=== PATIENT | male | born 1940 | race Caucasian/White ===

== ENCOUNTER 2019-02-18 12:02 | Inpatient (IN) | payer OTHER, MEDICAID ==
[~2019-02-18] VITALS: Ht 177.8 cm; Wt 64.3 kg
[2019-02-18] MEDS ORDERED: SODIUM CHLORIDE 0.9% 500 ML IVB ONE (12:08)
[2019-02-18 13:05] LABS: Basophils # (auto) 0 uL; Eosinophils # (auto) 0 uL; Lymphocytes # (auto) 0.4 uL; Monocytes # (auto) 0.5 uL; Neutrophils # (auto) 4.2 uL
[2019-02-18 13:06] LABS: Basophils % (auto) 0.9 % (0.0-2.0); Eosinophils % (auto) 0.4 % (0.0-7.0); Hematocrit 25.8 % (41.0-53.0); Hemoglobin 8.3 g/dL (13.5-17.5); Lymphocytes % (auto) 7.6 % (10.0-50.0); Mean Corpuscular Hemoglobin 26.8 pg (28.0-32.0); Mean Corpuscular Hgb Conc. 32.4 g/dL (32.0-36.0); Mean Corpuscular Volume 82.6 fL (80.0-100.0); Monocytes % (auto) 9.1 % (0.0-12.0); Platelet Count (auto) 134 10^3/uL (140-450); Red Blood Cells 3.12 10^6/uL (4.5-5.90); Red Cell Distribution Width 16.1 % (11.8-14.3); White Blood Cell 5.1 10^3/uL (4.4-10.8)
[2019-02-18 13:18] LABS: INR 1.09 (0.9-1.15); Partial Thromboplastin Time 28.1 sec (23.64-32.05)
[2019-02-18 13:38] LABS: Albumin 2.6 g/dL (3.4-5.0); BUN/Creatinine Ratio 10.8; Calcium 8.2 mg/dL (8.5-10.1); Magnesium 2.1 mg/dL (1.6-2.6); Potassium 3.8 mmol/L (3.5-5.1)
[2019-02-18 13:43] LABS: Bilirubin, Total 0.7 mg/dL (0.2-1.0); Total Protein 9.4 g/dL (6.4-8.2)
[2019-02-18] MEDS ORDERED: DOCUSATE SOD 100 MG CAP PO PRN (16:30)
[2019-02-18] MEDS ORDERED: NITROGLYCERIN 0.4 MG SL TAB SL PRN (16:30)
[2019-02-18] MEDS ORDERED: ONDANSETRON HCL 4 MG/2 ML VIAL IV PRN (16:30)
[2019-02-18] MEDS ORDERED: HYDROcodone-ACET 5/325MG TAB PO PRN (16:30)
[2019-02-18] MEDS ORDERED: MORPHINE SULF INJ 2 MG/ML SYRINGE 1ML IV PRN ×2 (16:30)
[2019-02-18] MEDS ORDERED: ACETAMINOPHEN 500 MG TAB PO PRN (16:30)
[2019-02-18 17:14] LABS: Lactic Acid w/Reflex 2.2 mmol/L (0.4-2.0)
[2019-02-19] VITALS (7 sets, daily range): BP systolic 113–155; BP diastolic 56–77
--- NOTE | 2019-02-19 01:40 | NUR ---
OPENING NOTE RECEIVED PATIENT FROM ER. NO REPORT RECEIVED. PATIENT SHOWING NO SIGN OF DISTRESS, SHORTNESS OF BREATH, AND PATIENT DENIES ANY PAIN AT THIS TIME. PATIENT SUCCESSFULLY AMBULATED TO BED FROM CHAIR WITH MINIMAL ASSIST. PATIENT EDUCATED ON PLAN OF CARE FOR THE NIGHT AND PATIENT VERBALIZED UNDERSTANDING. BED LOWERED, CALL LIGHT WITHIN REACH, AND PATIENT WILL BE ROUNDED ON EVERY HOUR AND NEEDED.
--- NOTE | 2019-02-19 07:38 | NUR ---
Opening Shift Note Assumed care of patient, awake, alert and oriented. No S/S of distress/SOB or pain. Bed at lowest locked position, side rails up x2 and call light within reach. Instructed on POC and to call for assist PRN, will continue to monitor for changes Q1hr and PRN.
--- NOTE | 2019-02-19 08:34 | NUR ---
Patents sister Katerina, is requesting long term facility for patient to regain strength. Sister states that her concern is he is too weak and she is unable to care for him on her own. She states he has had multiple falls at home due to his weakness.
[2019-02-19 08:58] LABS: Basophils # (auto) 0 uL; Eosinophils # (auto) 0 uL; Eosinophils % (auto) 0.4 % (0.0-7.0); Lymphocytes # (auto) 0.5 uL; Mean Corpuscular Volume 82.9 fL (80.0-100.0); Monocytes # (auto) 0.5 uL; Monocytes % (auto) 8.6 % (0.0-12.0); Neutrophils # (auto) 4.6 uL; White Blood Cell 5.6 10^3/uL (4.4-10.8)
[2019-02-19 09:04] LABS: Basophils % (auto) 0.6 % (0.0-2.0); Hematocrit 28.3 % (41.0-53.0); Hemoglobin 9.5 g/dL (13.5-17.5); Lymphocytes % (auto) 8.9 % (10.0-50.0); Mean Corpuscular Hemoglobin 27.9 pg (28.0-32.0); Mean Corpuscular Hgb Conc. 33.6 g/dL (32.0-36.0); Neutrophils % (auto) 81.5 % (37.0-80.0); Nucleated Red Blood Cells % 0.1 %; Platelet Count (auto) 149 10^3/uL (140-450); Red Blood Cells 3.41 10^6/uL (4.5-5.90); Red Cell Distribution Width 16.1 % (11.8-14.3)
[2019-02-19 09:29] LABS: Albumin 2.7 g/dL (3.4-5.0); BUN/Creatinine Ratio 9.9; Calcium 8.7 mg/dL (8.5-10.1); Potassium 3.8 mmol/L (3.5-5.1)
[2019-02-19 09:31] LABS: Bilirubin, Total 1.3 mg/dL (0.2-1.0); Total Protein 9.5 g/dL (6.4-8.2)
[2019-02-19] MEDS: FAMOTIDINE 20 MG TAB PO SCH (09:33)
[2019-02-19] MEDS: ASPirin 81 mg TAB PO SCH (09:33)
--- NOTE | 2019-02-19 18:56 | NUR ---
PATIENT IS COMFORTABLY SITTING UP IN BED. BED AT LOWEST LOCKED POSITION AND CALL LIGHT WITHIN REACH. BED ALARM ON. WILL ENDORSE CARE TO NOC RN.
[2019-02-19] MEDS ORDERED: LEVOFLOXACIN 500MG 100 ML IV ONE (21:00)
--- NOTE | 2019-02-20 01:16 | NUR ---
1999-RECEIVED PT RESTING IN BED, NO COMPLAINTS VOICED, NO ACUTE DISTRESS NOTED, VSS, PT TELE MONITORED RHYTHM NOTED. Addendum: 02/20/19 at 0123 by Reg 2 RN 1999-10 P'S ADDRESSED, PT EDUCATED ON NEED TO REPOSITION AT LEAST EVERY 2 HOURS, VERBALIZED UNDERSTANDING.
--- NOTE | 2019-02-20 01:25 | NUR ---
2130-DR SCOTT AT BEDSIDE SPEAKING WITH PT. DISCUSSED PLAN OF CARE WITH PT, MILD CONFUSION NOTED, REINFORCED EDUCATION.
--- NOTE | 2019-02-20 02:06 | NUR ---
0206-PT ABLE TO REPOSITION SELF ENCOURAGED EVERY TO HOURS TO CHANGE POSITION. Addendum: 02/20/19 at 0207 by Reg 2 RN Amended: Links added.
--- NOTE | 2019-02-20 04:13 | NUR ---
PT ENCOURAGED TO REPOSITION. Addendum: 02/20/19 at 0413 by Reg 2 RN Amended: Links added.
[2019-02-20 05:00] VITALS: BP 152/67
[2019-02-20 06:50] LABS: Hemoglobin 8.8 g/dL (13.5-17.5); Lymphocytes # (auto) 0.7 uL; Monocytes # (auto) 0.6 uL; White Blood Cell 5.4 10^3/uL (4.4-10.8)
[2019-02-20 06:54] LABS: Basophils # (auto) 0.2 uL; Basophils % (auto) 3.2 % (0.0-2.0); Eosinophils # (auto) 0 uL; Eosinophils % (auto) 0.8 % (0.0-7.0); Hematocrit 27.3 % (41.0-53.0); Lymphocytes % (auto) 12.6 % (10.0-50.0); Mean Corpuscular Hemoglobin 26.7 pg (28.0-32.0); Mean Corpuscular Hgb Conc. 32.2 g/dL (32.0-36.0); Monocytes % (auto) 10.5 % (0.0-12.0); Neutrophils # (auto) 3.9 uL; Neutrophils % (auto) 72.9 % (37.0-80.0); Platelet Count (auto) 129 10^3/uL (140-450); Red Blood Cells 3.29 10^6/uL (4.5-5.90); Red Cell Distribution Width 16.1 % (11.8-14.3)
[2019-02-20 07:11] LABS: Potassium 3.9 mmol/L (3.5-5.1)
[2019-02-20 07:18] LABS: BUN/Creatinine Ratio 13.9; Calcium 8.3 mg/dL (8.5-10.1)
--- NOTE | 2019-02-20 07:20 | NUR ---
PT RESTING IN BED, NO COMPLAINTS VOICED, NO ACUTE DISTRESS NOTED. REPORT GIVEN TO NINO BRAMBILA Addendum: 02/20/19 at 0721 by Reg 2 NINO Amended: Links added.
--- NOTE | 2019-02-20 07:30 | NUR ---
OPENING NOTE The patient is received alert and oriented times four with no SOB or s/s of distress at this time. The patient is resting in bed in the lowest position with call light within reach, will continue to monitor and POC.
[2019-02-20 09:00] VITALS: BP 140/66
--- NOTE | 2019-02-20 10:00 | NUR ---
PENDING TRANSFER Case management is called and the patient's pending transfer to [place] is being worked on at this time, will continue POC.
--- NOTE | 2019-02-20 10:19 | NUR ---
SS consult regarding transfer to [facility], pt's contracted facility, if bed available otherwise pt can transfer to SNF. Contacted Josee, housekeeper cleaning cooking at [facility], regarding bed availability. Per Josee, facility has 25 pt's holding in the ER and have no bed availability. Notified covering nurse and social worker delinquency prevention of no beds for transfer and pt will be going for SNF placement.
[2019-02-20] MEDS ORDERED: LEVOFLOXACIN 500 MG TAB PO ONE (12:00)
--- NOTE | 2019-02-20 12:30 | NUR ---
TRANSFER UPDATE The hospitalist is called and updates the patient's transfer status. The patient's transfer to [facility] has been cancelled and the patient will be transferred to [facility]. The patient has a pending Neuro and Cardio consultation to be completed before being transferred to [facility].
[2019-02-20] MEDS: FAMOTIDINE 20 MG TAB PO SCH (12:57)
[2019-02-20] MEDS: ASPirin 81 mg TAB PO SCH (12:57)
[2019-02-20] MEDS: ENOXAPARIN SOD 40 MG/0.4 ML SYRINGE SC SCH (12:58)
[2019-02-20 13:00] VITALS: BP 126/62
--- NOTE | 2019-02-20 13:46 | NUR ---
D/C planning Per consult for SNF placement. Contacted and faxed medical records to all three facilities [facility], [facility] and [place]. Per Og from [facility] Pt has been accepted to room 302 bed [address] Ayala. Informed [facility] for transportation authorization. [facility] faxed medical records to [facility] Ph: ) Fax: ). Contacted [facility] and spoke to Jodie. Per Jodie from [facility] authorization for [facility]: [id number]. Contacted [facility] ph: ) advised Macy to put transport on will call. Informed NINO Finch transportation will be set up on will call. Addendum: 02/20/19 at 1357 by ADRIENNE LIMON Amended: Links added.
--- NOTE | 2019-02-20 13:50 | NUR ---
CHEMICAL WEIGHER CALLS Dr. Smith calls and is updated on the patient's status. Dr. Smith states he will be bedside for the patient's Cardio Consult later today.
--- NOTE | 2019-02-20 14:04 | NUR ---
NEUROLOGIST CALLED Dr. Parks is paged for the patient's Neurology consultation and MRI results, awaiting call back at this time.
--- NOTE | 2019-02-20 14:10 | NUR ---
PHYSICIAN CALLED Dr. Cora Sneed is called and a message is left regarding the patient's MRI result.
--- NOTE | 2019-02-20 14:30 | NUR ---
NEUROLOGIST CALLS Dr. Parks calls and is updated on the patient's status. Dr. Parks states that he needs to be notified stat if the patient converts to A-Fib. Dr. Parks is made aware of the patient's resulting MRI and acknowledges the information at this time. Will continue to monitor and POC.
--- NOTE | 2019-02-20 15:10 | NUR ---
PHYSICIAN AWARE Dr. Cora Sneed calls and is made aware of the patient's positive blood cultures. The patient's blood culture is positive for gram positive cocci in clusters. Dr. Cora Sneed places orders via telephone with read back, will continue to monitor and POC.
[2019-02-20 15:12] LABS: Urine Bacteria FEW /hpf (None Seen); Urine Blood 2+ /uL (Negative); Urine Hyaline Cast FEW /lpf (0 - 2); Urine Mucus FEW (None Seen); Urine Specific Gravity 1.012 (1.001-1.035); Urine WBC 9 /hpf (0 - 3)
[2019-02-20] MEDS ORDERED: VANCOMYCIN PER PHARMACY 0 MG IV SCH (15:30)
[2019-02-20] MEDS ORDERED: VANCOMYCIN 1GM/250ML 250 ML IV ONE (15:30)
[2019-02-20 17:00] VITALS: BP 120/64
--- NOTE | 2019-02-20 19:20 | NUR ---
Opening Shift Note Assumed care of patient, awake and alert. No S/S of distress/SOB or pain. Instructed on POC and to call for assist PRN, will continue to monitor for changes Q1hr and PRN.
[2019-02-20 21:00] VITALS: BP 106/50
--- NOTE | 2019-02-20 23:40 | NUR ---
PHYSICIAN CALL Received call from Dr. Cora Sneed. Orders received for AHMET on 02/21/19 and NPO at midnight starting on at 0000.
[2019-02-21 04:30] VITALS: BP 134/69
[2019-02-21 07:18] LABS: Basophils # (auto) 0.1 uL; Eosinophils # (auto) 0.1 uL; Hemoglobin 9.1 g/dL (13.5-17.5); Lymphocytes # (auto) 0.5 uL; Monocytes # (auto) 0.5 uL; Neutrophils # (auto) 3.7 uL; White Blood Cell 4.9 10^3/uL (4.4-10.8)
[2019-02-21 07:20] LABS: Basophils % (auto) 2.1 % (0.0-2.0); Eosinophils % (auto) 2.3 % (0.0-7.0); Hematocrit 27.7 % (41.0-53.0); Lymphocytes % (auto) 10.3 % (10.0-50.0); Mean Corpuscular Hemoglobin 26.9 pg (28.0-32.0); Mean Corpuscular Hgb Conc. 32.6 g/dL (32.0-36.0); Mean Corpuscular Volume 82.5 fL (80.0-100.0); Monocytes % (auto) 9.8 % (0.0-12.0); Neutrophils % (auto) 75.5 % (37.0-80.0); Platelet Count (auto) 133 10^3/uL (140-450); Red Blood Cells 3.36 10^6/uL (4.5-5.90); Red Cell Distribution Width 16.2 % (11.8-14.3)
[2019-02-21 07:35] LABS: Calcium 8.5 mg/dL (8.5-10.1); Potassium 3.8 mmol/L (3.5-5.1)
[2019-02-21 07:39] LABS: BUN/Creatinine Ratio 17.5
[2019-02-21 08:00] VITALS: BP 130/66
--- NOTE | 2019-02-21 09:18 | NUR ---
PT TRANSPORTED TO [employer] LE[facility] FOR AHMET, PRE-OP CHECKLIST COMPLETED, CONSENTS SIGNED, IV ON LEFT FOREARM PATENT AND FLUSHING, NO SIGNS OF DISTRESS AT THIS TIME.
[2019-02-21] MEDS ORDERED: fentaNYL CITRATE 100 MCG/2 ML VL IV ONE (09:30)
[2019-02-21] MEDS ORDERED: MIDAZOLAM HCL 1MG/1ML-2 ML VIAL IV ONE (09:30)
[2019-02-21] MEDS ORDERED: LIDOCAINE VISCOUS 2% 15ML UD PO ONE (09:30)
[2019-02-21] MEDS ORDERED: LEVOFLOXACIN 500 MG TAB PO SCH (10:00)
[2019-02-21] MEDS: ASPirin 81 mg TAB PO SCH (10:00)
[2019-02-21] MEDS: ENOXAPARIN SOD 40 MG/0.4 ML SYRINGE SC SCH (10:00)
--- NOTE | 2019-02-21 10:00 | NUR ---
MEDICATION PT OFF FLOOR FOR AHMET, WILL GIVE SCHEDULED MEDICATION ONCE PT IS BACK.
--- NOTE | 2019-02-21 10:55 | NUR ---
SPOKE WITH DR. Hillary HERMAN PER DR. Cora HERMAN HE SPOKE WITH DR. HAIR AND AHMET WAS NEGATIVE, ORDERED TO CALL DR. GARZON AND DR. LI FOR DISCHARGE CLEARANCE ONCE OFFICIAL AHMET RESULT IS BACK. PT TO TRANSFER TO SNF.
[2019-02-21] MEDS ORDERED: ATORVASTATIN 20 MG TAB PO ONE (11:00)
--- NOTE | 2019-02-21 11:21 | NUR ---
CALLED SUE IN [facility], LEFT A MESSAGE FOR DR. HAIR THAT PT NEED THE OFFICIAL AHMET REPORT, PT PENDING DISCHARGE TO SNF. PER SUE SHE WILL INFORM DR. HAIR.
--- NOTE | 2019-02-21 11:22 | NUR ---
Nutrition Assessment Notes please see attached link for complete assessment Est. Needs BW (64 kg): 8393-2442 kcal (25-30 kcal/kgBW), 64-76 gms pro (1.0-1.2 gms/kgBW). Will continue to monitor pertinent labs and reassess nutrient need prn Addendum: 02/21/19 at [address] Amended: Links added.
--- NOTE | 2019-02-21 11:35 | NUR ---
RECEIVED REPORT FROM NINO TEIXEIRA OF [facility]
--- NOTE | 2019-02-21 12:12 | NUR ---
RECEIVED PT FROM [facility] VIA BED, PT IS AWAKE AND ALERT, NO SIGNS OF DISTRESS AT THIS TIME, LLUVIA OF [facility] SAID PT SPIT BLOOD IN RECOVERY ROOM, I WILL HOLD BLOOD THINNER AND MONITOR THE PT FOR BLEEDING.
[2019-02-21] MEDS: FAMOTIDINE 20 MG TAB PO SCH (12:14)
--- NOTE | 2019-02-21 12:24 | NUR ---
PAGED DR. LI FOR DISCHARGE CLEARANCE, WAITING FOR CALL BACK.
--- NOTE | 2019-02-21 12:26 | NUR ---
PAGED DR. GARZON FOR DISCHARGE CLEARANCE, WAITING FOR CALL BACK.
--- NOTE | 2019-02-21 12:35 | NUR ---
D/C Planning Followed up a call with [facility] transportation advised Zoila to keep status on will call for the weekend. Per Zoila from [facility] transportation will be set up on will call Ph:.
--- NOTE | 2019-02-21 12:42 | NUR ---
DR. LI CALLED HE WAS UPSET WHY HE WAS CONSULTED FOR CARDIOLOGY AND DR. HAIR DID THE AHMET, HE SAID HE WILL CLEAR THE PT BUT DR. HAIR HAS TO CLEAR THE PT WELL BASE ON AHMET RESULT.
--- NOTE | 2019-02-21 12:55 | NUR ---
DR. GARZON CALLED, HE CLEARED PT FOR DISCHARGE TO SNF.
--- NOTE | 2019-02-21 13:15 | NUR ---
sister Katerina made aware pt will be transferred to [facility] today room 302 bed 2.
--- NOTE | 2019-02-21 13:21 | NUR ---
SPOKE WITH MAINTENANCE DEPARTMENT MANAGER SONIYA PUCKETT PER SONIYA, DR. HAIR ALREADY SPOKE WITH DR. HERMAN AHMET WAS NEGATIVE, PT IS CLEARED FOR DISCHARGE.
--- NOTE | 2019-02-21 14:00 | NUR ---
SPOKE WITH HOSSEIN ALMAGUER, PER HOSSEIN PT IS OKAY TO GO, [facility] IS ON WILL CALL.
--- NOTE | 2019-02-21 14:37 | NUR ---
called [facility] for transportation, ETA at 4:0pm
--- NOTE | 2019-02-21 14:50 | NUR ---
report called to [facility] acute
--- NOTE | 2019-02-21 15:43 | NUR ---
BP 173/82, RE CHECKED 164/82, PT HAS NO BP MEDICATION, PAGED DR. Cora HERMAN, WAITING FOR CALL BACK.
--- NOTE | 2019-02-21 16:10 | NUR ---
DR. HERMAN CALLED MADE AWARE OF PT'S BLOOD PRESSURE 164/82, NO BLOOD PRESSURE MEDICATION AND ATORVASTATIN WAS NOT INCLUDED IN PT'S MEDICATION. DR. HERMAN ORDERED AMLODIPINE 10MG ONE TIME DOSE AND ADDED IN PT'S MEDICATION AMLODIPINE 10MG PO DAILY AND ATORVASTATIN 40MG PO DAILY.
[2019-02-21] MEDS ORDERED: amLODIPine BESYLATE 5 MG TAB PO ONE (16:15)
--- NOTE | 2019-02-21 16:15 | NUR ---
CORE MEASURE PT INSTRUCTED TO TAKE ASPIRIN AND ATORVASTATIN TO PREVENT STROKE, PT VERBALIZED UNDERSTANDING.
--- NOTE | 2019-02-21 16:25 | NUR ---
CALLED NINO LUKE OF [facility], UPDATED ON PT'S MEDICATION, MADE AWARE PT WAS GIVEN AMLODIPINE 10MG PO FOR BP 164/82 AND ATORVASTATIN 40 MG DAILY WAS ADDED TO PT'S MEDICATION.
--- NOTE | 2019-02-21 16:30 | NUR ---
Discharge TO [facility], instructions given as ordered. Encourage to follow up with PRIMARY CARE PROVIDER IN 1 WEEK as instructed. All questions and concerns addressed. Patient verbalized understanding. Medication reconciliation form completed and copy given to patient. IV removed with catheter intact, pressure dressing applied, yancey catheter removed. Telemetry unit returned to ICU. Patient taken to vehicle via GURNEY with all personal belongings, accompanied by [facility] staff. No distress noted at time of departure.
--- NOTE | 2019-02-21 16:41 | NUR ---
assessment Patient is a 79 year old male who is alert and oriented. prior to admission patient lived home with family and functioned with assistance. Per patient his PCP is Dr Velez. Patient has a cane and fww for home use. Patient has been admitted for CVA. Patient wants SNF for rehab. Patient has a consult for rehab. Patient agrees. Patient will go to [facility] on cleared for discharge. Patient verbalized understanding and agreed to discharge plan to SNF. Addendum: 02/21/19 at 1648 by Renae MORRIS Amended: Links added.
[2019-02-21] MEDS ORDERED: VANCOMYCIN 1GM/250ML 250 ML IV SCH (17:00)
[2019-02-21] MEDS ORDERED: ATORVASTATIN 20 MG TAB PO SCH (22:00)
== END 2019-02-21 16:30 | DRG 65 ==
LOC: ER 12:02 → EDBD 12:02 → TELE 12:03 → TELE-CENTR 23:55
PROVIDERS: ADMIT Nurse Practitioner Acute Care; ATTEND Internal Medicine
PROC: B24BZZ4 Ultrasonography of Heart with Aorta, Transesophageal (ICD-10-PCS; principal; 2019-02-21)
DX: I63.40 Cerebral infarction due to embolism of unspecified cerebral artery (principal); E44.0 Moderate protein-calorie malnutrition; G81.94 Hemiplegia, unspecified affecting left nondominant side; J44.9 Chronic obstructive pulmonary disease, unspecified; I10 Essential (primary) hypertension; K74.60 Unspecified cirrhosis of liver; Z96.642 Presence of left artificial hip joint; I34.0 Nonrheumatic mitral (valve) insufficiency; I67.2 Cerebral atherosclerosis; I70.0 Atherosclerosis of aorta; M19.90 Unspecified osteoarthritis, unspecified site; D64.9 Anemia, unspecified; D69.6 Thrombocytopenia, unspecified; W18.39XA Other fall on same level, initial encounter; S50.319A Abrasion of unspecified elbow, initial encounter; Z79.891 Long term (current) use of opiate analgesic; Y93.89 Activity, other specified; Y92.89 Other specified places as the place of occurrence of the external cause; Y99.8 Other external cause status; Z79.899 Other long term (current) drug therapy; Z68.20 Body mass index [BMI] 20.0-20.9, adult; Z87.440 Personal history of urinary (tract) infections
CPT/HCPCS: 36415; 70450; 70551; 71045; 80048; 80053; 81001; 82140; 83605; 83735; 84443; 84484; 85025; 85610; 85730; 86850; 86900; 86901; 87040; 87077; 87081; 87086; 87186; 93005; 93312; 93886; 96360; 97116; 97163; 97530; 99291; G0378; J1956; J2250

== ENCOUNTER 2019-06-05 21:12 | Inpatient (IN) | payer OTHER, MEDICAID ==
[~2019-06-05] VITALS: Ht 160 cm; Wt 62.5 kg
[2019-06-05 22:19] LABS: Basophils # (auto) 0.1 uL; Basophils % (auto) 0.5 % (0.0-2.0); Eosinophils # (auto) 0 uL; Eosinophils % (auto) 0.2 % (0.0-7.0); Hematocrit 26.5 % (41.0-53.0); Hemoglobin 8.7 g/dL (13.5-17.5); Lymphocytes # (auto) 0.5 uL; Lymphocytes % (auto) 3.7 % (10.0-50.0); Mean Corpuscular Hemoglobin 28.6 pg (28.0-32.0); Mean Corpuscular Hgb Conc. 32.7 g/dL (32.0-36.0); Mean Corpuscular Volume 87.6 fL (80.0-100.0); Monocytes # (auto) 0.7 uL; Neutrophils % (auto) 90.6 % (37.0-80.0); Platelet Count (auto) 140 10^3/uL (140-450); Red Blood Cells 3.03 10^6/uL (4.5-5.90); Red Cell Distribution Width 19.7 % (11.8-14.3); White Blood Cell 13.2 10^3/uL (4.4-10.8)
[2019-06-05 22:34] LABS: INR 1.29 (0.9-1.15); Partial Thromboplastin Time 30.1 sec (23.64-32.05)
[2019-06-05 22:40] LABS: Calcium 7.8 mg/dL (8.5-10.1); Potassium 4.2 mmol/L (3.5-5.1)
[2019-06-05 22:42] LABS: Albumin 2.2 g/dL (3.4-5.0); BUN/Creatinine Ratio 19.4
[2019-06-05 22:46] LABS: Lactic Acid w/Reflex 2.4 mmol/L (0.4-2.0)
[2019-06-05 22:56] LABS: Bilirubin, Total 0.9 mg/dL (0.2-1.0); Total Protein 9.1 g/dL (6.4-8.2)
[2019-06-06] MEDS ORDERED: DILTIAZEM HCL 25 MG/5 ML VIAL IV ONE ×2 (00:15→08:00)
[2019-06-06 01:37] LABS: Magnesium 2.1 mg/dL (1.6-2.6)
[2019-06-06 01:42] LABS: Urine Bacteria MOD /hpf (None Seen); Urine Blood 2+ /uL (Negative); Urine Hyaline Cast FEW /lpf (0 - 2); Urine Specific Gravity 1.017 (1.001-1.035); Urine WBC 8 /hpf (0 - 3)
[2019-06-06] MEDS ORDERED: MORPHINE SULF INJ 2 MG/ML SYRINGE 1ML IV PRN (05:30)
[2019-06-06] MEDS ORDERED: ONDANSETRON HCL 4 MG/2 ML VIAL IV PRN (05:30)
[2019-06-06] MEDS ORDERED: TEMAZEPAM 15 MG CAP PO PRN (05:30)
[2019-06-06] MEDS ORDERED: NITROGLYCERIN 0.4 MG SL TAB SL PRN (05:30)
[2019-06-06] MEDS ORDERED: SODIUM CHLORIDE 0.9% 500 ML IV ONE (05:30)
[2019-06-06] MEDS ORDERED: LEVOFLOXACIN 500MG 100 ML IV ONE (06:00)
[2019-06-06] MEDS ORDERED: ENOXAPARIN SOD 100 MG/1 ML SYRINGE SC ONE (06:00)
[2019-06-06] MEDS ORDERED: DIGOXIN (250MCG/ML) 2 ML AMPULE IV ONE (08:00)
[2019-06-06] MEDS ORDERED: AMIODARONE HCL 150 MG in D5W 5% 100 ML IV ONE (09:00)
[2019-06-06] MEDS ORDERED: AMIODARONE HCL 900 MG in DEXTROSE 500 ML IV SCH ×2 (09:04→16:15)
[2019-06-06] MEDS ORDERED: amLODIPine BESYLATE 5 MG TAB PO SCH (10:00)
[2019-06-06] MEDS ORDERED: ASPirin 81 mg TAB PO SCH (10:00)
[2019-06-06] MEDS: PANTOPRAZOLE 40 MG TAB PO SCH (10:24)
[2019-06-06] MEDS: ENOXAPARIN SOD 60 MG/0.6 ML SYRINGE SC SCH ×2 (10:25→22:12)
[2019-06-06] MEDS: FUROSEMIDE 40 MG/4 ML VIAL IV ONE ×2 (16:15→16:38)
[2019-06-06] MEDS: ACETAMINOPHEN 325 MG TAB PO PRN (18:23)
[2019-06-06] MEDS: ATORVASTATIN 20 MG TAB PO SCH (22:13)
[2019-06-06] MEDS: CARVEDILOL 3.125 MG TAB PO SCH (22:13)
[2019-06-06 22:33] LABS: Basophils # (auto) 0 uL; Basophils % (auto) 0.3 % (0.0-2.0); Eosinophils # (auto) 0 uL; Eosinophils % (auto) 0.5 % (0.0-7.0); Hematocrit 24.3 % (41.0-53.0); Hemoglobin 7.7 g/dL (13.5-17.5); Lymphocytes # (auto) 0.7 uL; Lymphocytes % (auto) 7.7 % (10.0-50.0); Mean Corpuscular Hemoglobin 28.2 pg (28.0-32.0); Mean Corpuscular Hgb Conc. 31.7 g/dL (32.0-36.0); Mean Corpuscular Volume 88.9 fL (80.0-100.0); Monocytes # (auto) 0.7 uL; Monocytes % (auto) 7.5 % (0.0-12.0); Neutrophils # (auto) 8.1 uL; Platelet Count (auto) 127 10^3/uL (140-450); Red Blood Cells 2.73 10^6/uL (4.5-5.90); Red Cell Distribution Width 19.6 % (11.8-14.3); White Blood Cell 9.6 10^3/uL (4.4-10.8)
[2019-06-06 22:41] LABS: BUN/Creatinine Ratio 17.5; Calcium 7.4 mg/dL (8.5-10.1); Potassium 3.7 mmol/L (3.5-5.1)
[2019-06-07] MEDS ORDERED: ALBUTEROL SULF 2.5 MG/0.5ML(0.5%) NEB SOLN NEB ONE (00:15)
[2019-06-07] MEDS ORDERED: IPRATROPIUM BROM 0.5 MG/2.5ML INH SOL NEB ONE (00:15)
[2019-06-07] MEDS ORDERED: LEVOFLOXACIN 250MG 50 ML IV SCH (06:00)
[2019-06-07 07:15] LABS: Basophils # (auto) 0.1 uL; Basophils % (auto) 0.5 % (0.0-2.0); Eosinophils # (auto) 0 uL; Eosinophils % (auto) 0.3 % (0.0-7.0); Hematocrit 27.3 % (41.0-53.0); Hemoglobin 8.7 g/dL (13.5-17.5); Lymphocytes # (auto) 0.7 uL; Lymphocytes % (auto) 5.1 % (10.0-50.0); Mean Corpuscular Hemoglobin 28.7 pg (28.0-32.0); Mean Corpuscular Hgb Conc. 31.9 g/dL (32.0-36.0); Mean Corpuscular Volume 89.9 fL (80.0-100.0); Monocytes # (auto) 0.7 uL; Monocytes % (auto) 5.5 % (0.0-12.0); Neutrophils % (auto) 88.6 % (37.0-80.0); Platelet Count (auto) 173 10^3/uL (140-450); Red Blood Cells 3.04 10^6/uL (4.5-5.90); White Blood Cell 13.5 10^3/uL (4.4-10.8)
[2019-06-07 07:39] LABS: Albumin 1.9 g/dL (3.4-5.0); Calcium 7.6 mg/dL (8.5-10.1); Magnesium 2.1 mg/dL (1.6-2.6); Potassium 3.7 mmol/L (3.5-5.1)
[2019-06-07 07:40] LABS: Lactic Acid w/Reflex 3.4 mmol/L (0.4-2.0)
[2019-06-07 07:42] LABS: Bilirubin, Total 1.9 mg/dL (0.2-1.0); Total Protein 8.4 g/dL (6.4-8.2)
[2019-06-07] MEDS: PANTOPRAZOLE 40 MG TAB PO SCH (09:23)
[2019-06-07] MEDS: ENOXAPARIN SOD 60 MG/0.6 ML SYRINGE SC SCH ×2 (09:24→22:24)
[2019-06-07] MEDS: CARVEDILOL 3.125 MG TAB PO SCH ×2 (09:24→22:00)
[2019-06-07] MEDS ORDERED: FUROSEMIDE 40 MG/4 ML VIAL IV SCH (10:00)
[2019-06-07] MEDS ORDERED: ASPirin 81 mg TAB PO SCH (10:00)
[2019-06-07 11:30] VITALS: BP 110/42
--- NOTE | 2019-06-07 11:30 | NUR ---
Admit to [facility] admitted to [facility] via gurney on clay processing factory worker, and portable 02. Patient transfered to bed, connected to unit monitoring and oxygen, and weighed by bedscale. Patient awake and alert, no S/S of distress/SOB or pain, saturation 95% at 2 LPM oxygen via nasal cannula. Per patient he's updated with his vaccination and refused any vaccination to be given this admission. See interventions for complete assessment. Patient oriented to Abby santana RN, unit, room, bed, and unit policies regarding patient care and visiting hours. All questions and concerns addressed, patient verbalized understanding. Bed lcoked on low position, side rails up x2, bed alarms on at all times, call garcia within reach, instructed to call for needed assistance. Will continue to monitor.
[2019-06-07 12:00] VITALS: BP 98/38
[2019-06-07] MEDS ORDERED: AMIODARONE HCL 200 MG TAB PO SCH (14:01)
--- NOTE | 2019-06-07 14:34 | NUR ---
Dr Ruffin at bedside, updated on patient's status. Patient seen and examined. Plan to transfer patient to [facility]. Will carry out new orders.
--- NOTE | 2019-06-07 14:37 | NUR ---
Dr Clifton at bedside, updated on patient's status. No new orders at this time.
[2019-06-07 15:01] LABS: Protein, Urine 58.4 mg/dL (0.0-11.9)
--- NOTE | 2019-06-07 15:14 | NUR ---
Wound photograph taken for reference.
[2019-06-07] MEDS: AMIODARONE HCL 200 MG TAB PO SCH ×2 (15:17→22:26)
[2019-06-07 16:00] VITALS: BP 101/43
--- NOTE | 2019-06-07 16:10 | NUR ---
Patient denies any home medications being taken.
--- NOTE | 2019-06-07 16:20 | NUR ---
Paged customer resolution specialist manager of case management regarding patient's transfer to [facility]. Awaiting call back.
--- NOTE | 2019-06-07 16:20 | NUR ---
Received call from [facility] requesting patient's face sheet, transfer order and discharge summary to be fax @ [phone]. Telephone number [phone].
--- NOTE | 2019-06-07 16:36 | NUR ---
Face sheet and discharge order faxed to [facility]
--- NOTE | 2019-06-07 17:03 | NUR ---
Attempted to re-paged electronics processor insurance case manager, per elevating grader operator they're no pageable after 5 PM.
--- NOTE | 2019-06-07 18:25 | NUR ---
Spoke to Anthony regarding patient's transfer [facility], per Anthony we're are still waiting for a bed from [facility].
--- NOTE | 2019-06-07 19:37 | NUR ---
Called Anthony regarding patient's transfer to [facility]. Per Anthony there's not bed yet.
[2019-06-07 19:54] VITALS: BP 100/42
--- NOTE | 2019-06-07 21:30 | NUR ---
Pt stable. Report given to Ange Santa RN at [facility]. Ange ONEILL was concerned over the lactic acid of 3.2, redraw ordered stat. Spoke with Dr. Ruffin, he stated it was ok for pt to go to Tele floor. No S/S of distress at this time. Will continue to monitor.
[2019-06-07] MEDS ORDERED: MUPIROCIN 2% OINT 15gm or 22gm EACHNOSTRI SCH (22:00)
[2019-06-07 22:23] VITALS: BP 114/45
[2019-06-07] MEDS: ACETAMINOPHEN 325 MG TAB PO PRN (22:24)
[2019-06-07] MEDS: ATORVASTATIN 20 MG TAB PO SCH (22:24)
--- NOTE | 2019-06-07 23:00 | NUR ---
RN notified sister Katerina of pt's transfer to [place].
--- NOTE | 2019-06-07 23:00 | NUR ---
Pt stable at this time. [facility] here for transport. Lactic acid redraw came back 1.3, Ange ONEILL notified at [place]. Pt left via gurney with [facility], care endorsed.
[2019-06-08 08:06] LABS: Immunoglobulin G, Serum 3896 mg/dL (700-1600)
== END 2019-06-07 23:05 | disposition short-term general hospital (02) | DRG 280 ==
LOC: EDUNIT# 21:12 → EDBD 21:12 → ER 21:16 → TELE 21:17 → DOU IN ICU 06-07 11:27
PROVIDERS: ADMIT Nurse Practitioner; ATTEND Internal Medicine
DX: I21.4 Non-ST elevation (NSTEMI) myocardial infarction (principal); I50.43 Acute on chronic combined systolic (congestive) and diastolic (congestive) heart failure; N17.9 Acute kidney failure, unspecified; N39.0 Urinary tract infection, site not specified; I48.20 Chronic atrial fibrillation, unspecified; E87.2 Acidosis; I13.0 Hypertensive heart and chronic kidney disease with heart failure and stage 1 through stage 4 chronic kidney disease, or unspecified chronic kidney disease; N13.6 Pyonephrosis; R79.89 Other specified abnormal findings of blood chemistry; I49.3 Ventricular premature depolarization; Z90.89 Acquired absence of other organs; Z96.642 Presence of left artificial hip joint; B19.20 Unspecified viral hepatitis C without hepatic coma; D63.8 Anemia in other chronic diseases classified elsewhere; D89.2 Hypergammaglobulinemia, unspecified; I35.1 Nonrheumatic aortic (valve) insufficiency; I48.91 Unspecified atrial fibrillation; K74.60 Unspecified cirrhosis of liver; N18.3 Chronic kidney disease, stage 3 (moderate); N40.0 Benign prostatic hyperplasia without lower urinary tract symptoms; R29.6 Repeated falls; Z79.82 Long term (current) use of aspirin; Z79.899 Other long term (current) drug therapy
CPT/HCPCS: 36415; 51702; 71045; 73090; 76775; 80048; 80053; 81001; 82570; 82784; 83605; 83735; 83880; 84156; 84300; 84443; 84484; 85025; 85610; 85730; 86334; 86335; 87040; 87077; 87186; 93005; 93306; 94640; 96365; 96367; 96372; 96375; G0378; J1956; J7060